=== PATIENT | female | born 1995 | race Caucasian/White ===

== ENCOUNTER 2021-05-31 07:11 | Inpatient (IN) | payer OTHER ==
[~2021-05-31] VITALS: Ht 170.2 cm; Wt 93.9 kg
[~2021-05-31 07:11] MED LIST: CELEXA20 MG PO; GLUCOPHAGE850 MG PO; MEDROL 4MG DOSEP4 MG PO; MUCINEX; PROVENTIL HFA6.7 GM INH; SKYLA1 EACH IY; ZITHROMAX250 MG PO; ZPAK PO
[2021-05-31 08:17] LABS: HCT 33.6 % (37.0-47.0); HGB 11.1 g/dl (12.5-16.0); MCH 29.8 pg (25.0-31.0); MCV 90.3 fL (78.0-100.0); MPV 11.6 fL (6.0-9.5); RBC 3.72 M/uL (4.20-5.40); RDW 12.7 % (11.5-14.0); WBC 15.5 K/uL (4.0-10.5)
[2021-05-31 10:15] LABS: BILIRUBIN NEGATIVE (NEGATIVE); BLOOD NEGATIVE Ery/uL (NEGATIVE); CLARITY CLEAR (CLEAR); COLOR YELLOW (YELLOW); GLUCOSE (U) NORMAL (NORMAL); LEUKOCYTES NEGATIVE Leu/uL (NEGATIVE); NITRITE NEGATIVE (NEGATIVE); PROTEIN NEGATIVE (NEGATIVE); SPECIFIC GRAVITY 1.025 (1.001-1.030); UROBILINOGEN 0.2 mg/dL (0.2-1.0); pH 6.5 (5.0-9.0)
[2021-05-31 16:40] LABS: AMPHETAMINES NEGATIVE (NEGATIVE); BARBITURATES NEGATIVE (NEGATIVE); ECSTASY (MDMA) NEGATIVE (NEGATIVE); MARIJUANA (THC) NEGATIVE (NEGATIVE); METHADONE NEGATIVE (NEGATIVE); OPIATES NEGATIVE (NEGATIVE); OXYCODONE NEGATIVE (NEGATIVE)
[2021-06-01 06:28] LABS: HCT 25.9 % (37.0-47.0); HGB 8.4 g/dl (12.5-16.0); MCH 29.8 pg (25.0-31.0); MCHC 32.4 g/dL (32.0-36.0); MCV 91.8 fL (78.0-100.0); MPV 11.3 fL (6.0-9.5); RBC 2.82 M/uL (4.20-5.40); RDW 12.6 % (11.5-14.0); WBC 13.1 K/uL (4.0-10.5)
== END 2021-06-02 12:09 | disposition home or self-care (01) | DRG 787 ==
LOC: FOB 07:11
PROVIDERS: ADMIT Obstetrics & Gynecology
PROC: 10D00Z1 Extraction of Products of Conception, Low, Open Approach (ICD-10-PCS; principal; 2021-05-31 09:00)
DX: O34.211 Maternal care for low transverse scar from previous cesarean delivery (principal); D62 Acute posthemorrhagic anemia; Z37.0 Single live birth; Z3A.39 39 weeks gestation of pregnancy; O99.02 Anemia complicating childbirth; O99.344 Other mental disorders complicating childbirth; F31.9 Bipolar disorder, unspecified; O99.334 Smoking (tobacco) complicating childbirth; Z88.8 Allergy status to other drugs, medicaments and biological substances
CPT/HCPCS: 36415; 80305; 81003; 86850; 86900; 86901; J0690; J1885; J2274; J2405; J2916; J7120